=== PATIENT | female | born 1995 | race Caucasian/White ===

== ENCOUNTER 2018-08-12 02:45 | Emergency (ER) | payer SELFPAY ==
[~2018-08-12] VITALS: Ht 165.1 cm; Wt 56.9 kg
[2018-08-12 02:49] VITALS: BP 105/63
--- NOTE | 2018-08-12 02:49 | NUR ---
TO BED # 4 AMBULATORY, REPORT GIVEN TO HELENE KIM
--- NOTE | 2018-08-12 02:49 | NUR ---
Pt presents to ED with right breast pain x1 day. 6/10 pain. Pt states edema, redness, and warmth. Pt denies drainage. She is but not pumping. Pt febrile. Cooling measures implemented. Medicated per protocol. A&Ox4. Positoined in bed for comfort with HOB elevated. Family at bedside. ER MD aware. Continue to monitor.
[2018-08-12] MEDS ORDERED: ACETAMINOPHEN 325 MG TAB PO ONE (03:05)
[2018-08-12 04:02] VITALS: BP 111/65
== END 2018-08-12 04:02 | disposition home or self-care (01) ==
LOC: MED 02:45
DX: N61.0 Mastitis without abscess (principal)
CPT/HCPCS: 99283

== ENCOUNTER 2019-07-14 12:31 | Emergency (ER) | payer SELFPAY ==
[~2019-07-14] VITALS: Ht 157.5 cm; Wt 54.4 kg
[2019-07-14 12:45] VITALS: BP 109/74
--- NOTE | 2019-07-14 12:54 | NUR ---
PT BIB SELF C/O SORE THROAT X2 DAYS, AND FEVER X1 DAY. ACHY PAIN AT 4/10, INCREASES W/ SWALLOWING, TX W/ IBUPORFEN W/ RELIEF. NO SWELLING OR ERYTHEMA NOTED TO THROAT, AIRWAY PATENT VOICE CLEAR, RR EVEN, NON LABORED, AND BREATH SOUNDS CLEAR. MOIST MUCUS MEMBRANES. VSS. ER TO SEE PT. PMH:DENIES RX:IBUPROFEN.
--- NOTE | 2019-07-14 13:30 | NUR ---
DR VALERA AT BEDSIDE
[2019-07-14] MEDS ORDERED: DEXAMETHASONE 4 MG/ML VIAL PO ONE (13:35)
[2019-07-14 14:32] VITALS: BP 110/75
== END 2019-07-14 14:32 | disposition home or self-care (01) ==
LOC: MED 12:31
DX: J02.0 Streptococcal pharyngitis (principal); R51 Headache
CPT/HCPCS: 99283; J1100

== ENCOUNTER 2020-11-20 03:25 | Emergency (ER) | payer BC ==
[~2020-11-20] VITALS: Ht 165.1 cm; Wt 66.2 kg
[2020-11-20 03:33] VITALS: BP 105/61
--- NOTE | 2020-11-20 03:33 | NUR ---
TO BED AMBULATORY
--- NOTE | 2020-11-20 03:35 | NUR ---
25 Y/O FEMALE CAME TO THE ED C/O TOOTHACHE.PT IS 28 WEEKS . PT STATES 5/10 SHARP TOOTACHE PAIN. PT IS A&OX4. DENIES N/V/D; SKIN IS PINK/WARM/DRY; PT DENIES ANY FEVER, CP, SOB, OR COUGH AT THIS TIME; VSS; PATIENT POSITIONED FOR COMFORT; HOB ELEVATED; BEDRAILS UP X2; BED DOWN. ER MD MADE AWARE OF PT STATUS. NKA PMH: DENIES
[2020-11-20] MEDS ORDERED: AMOX500C25 PO (03:52)
[2020-11-20 04:00] VITALS: BP 105/61
== END 2020-11-20 04:00 | disposition home or self-care (01) ==
LOC: MED 03:25
DX: K08.89 Other specified disorders of teeth and supporting structures (principal); Z79.899 Other long term (current) drug therapy
CPT/HCPCS: 64400; 99284

== ENCOUNTER 2021-02-05 15:49 | Inpatient (IN) | payer BC, SELFPAY ==
[~2021-02-05] VITALS: Ht 162.6 cm; Wt 71.7 kg
[~2021-02-05 15:49] MED LIST: AMOX500C25 PO
[2021-02-05] MEDS ORDERED: OXYTOCIN 20 UNITS in LACTATED RINGERS 1,000 ML IV SCH (16:00)
[2021-02-05] MEDS ORDERED: LACTATED RINGERS 1,000 ML IV SCH (16:00)
[2021-02-05] MEDS ORDERED: NALBUPHINE 10 MG/ML AMP IVP PRN (16:00)
[2021-02-05] MEDS ORDERED: CARBOPROST 250 MCG/ML AMP IM PRN (16:00)
[2021-02-05] MEDS ORDERED: METHYLERGONOVINE 0.2 MG/ML AMP IM PRN ×2 (16:00→17:45)
[2021-02-05] MEDS ORDERED: LACTATED RINGERS 500 ML IV SCH (16:00)
[2021-02-05] MEDS ORDERED: PROMETHAZINE 25 MG/ML VIAL IVP PRN (16:00)
[2021-02-05 16:13] LABS: BASOPHILS % (AUTO) 0.2 % (0.0-2.0); EOSINOPHILS % (AUTO) 0.5 % (0.0-4.0); HEMATOCRIT 32.7 % (36-48); HEMOGLOBIN 10.4 g/dL (12.0-16.0); LYMPHOCYTES % (AUTO) 28.4 % (20.5-51.1); MEAN CORPUSCULAR HEMOGLOBIN 24 pg (27-31); MEAN CORPUSCULAR HGB CONC 32 g/dL (33-37); MEAN CORPUSCULAR VOLUME 76.8 fL (80-94); MONOCYTES # (AUTO) 0.5 K/uL (0.8-1.0); MONOCYTES % (AUTO) 4.5 % (1.7-9.3); NEUTROPHILS # (AUTO) 6.9 K/uL (1.8-7.7); NEUTROPHILS % (AUTO) 66.4 % (42.2-75.2); PLATELET COUNT (AUTO) 200 K/uL (140-450); RED BLOOD CELL COUNT(AUTO) 4.26 MIL/uL (4.20-5.40); WHITE BLOOD COUNT (AUTO) 10.4 K/uL (4.8-10.8)
[2021-02-05 16:36] LABS: ALBUMIN 2.7 g/dL (3.4-5.0); ANION GAP 17.1 (8-16); CARBON DIOXIDE 21.1 mmol/L (21-32); CREATININE 0.7 mg/dL (0.6-1.3); POTASSIUM 4.2 mmol/L (3.5-5.1); TOTAL BILIRUBIN 0.3 mg/dL (0.0-1.0)
[2021-02-05] MEDS ORDERED: ROPIVACAINE 0.2%/NS PREMIX 200 ML EPI ONE (17:00)
[2021-02-05] MEDS ORDERED: OXYTOCIN 20 UNITS/LR PREMIX 1,000 ML IV ONE (17:00)
[2021-02-05] MEDS ORDERED: ROPIVACAINE 0.2%/NS PREMIX 100 ML EPI SCH (17:20)
[2021-02-05 17:31] LABS: APPEARANCE,URINE CLEAR (CLEAR); BILIRUBIN,URINE NEGATIVE (NEGATIVE); BLOOD, URINE NEGATIVE (NEGATIVE); COLOR,URINE YELLOW (YELLOW); LEUKOCYTE ESTERASE ,URINE NEGATIVE (NEGATIVE); NITRITE, URINE NEGATIVE (NEGATIVE); UGLUCOSE NEGATIVE (NEGATIVE)
[2021-02-05] MEDS ORDERED: oxyCODONE/APAP 5/325 MG 1 TAB TAB PO PRN (17:45)
[2021-02-05] MEDS ORDERED: TEMAZEPAM 15 MG CAP PO PRN (17:45)
[2021-02-05] MEDS ORDERED: HYDROcodone/APAP 5/325 MG 1 TAB TAB PO PRN (17:45)
[2021-02-05] MEDS ORDERED: OXYTOCIN 10 UNITS/ML VIAL IM PRN (17:45)
[2021-02-05] MEDS ORDERED: BENZOCAINE/MENTHOL 20%-0.5% 60 GM CAN TP PRN (17:45)
[2021-02-05] MEDS ORDERED: METHYLERGONOVINE 0.2 MG TAB PO PRN (17:45)
[2021-02-05] MEDS ORDERED: IBUPROFEN 800 MG TAB PO PRN (17:45)
[2021-02-05] MEDS ORDERED: DOCUSATE SOD/SENNA 50/8.6 MG 1 TAB PO SCH (21:00)
[2021-02-06 06:07] LABS: HEPATITIS B SURFACE ANTIGEN Negative (Negative)
[2021-02-06 06:35] LABS: HEMOGLOBIN 9.4 g/dL (12.0-16.0)
--- NOTE | 2021-02-06 09:22 | NUR ---
PATIENT HAS BEEN SCREENED AND CATEGORIZED LOW NUTRITION RISK. PATIENT WILL BE SEEN WITHIN 7 DAYS OF ADMISSION. 02/12/[address]
[2021-02-06] MEDS ORDERED: IBUP-2213 PO (12:34)
[2021-02-06] MEDS ORDERED: FERR325E14 PO (12:35)
== END 2021-02-06 14:46 | disposition home or self-care (01) | DRG 807 ==
LOC: MFCC 15:49
PROVIDERS: ADMIT Obstetrics & Gynecology; ATTEND Obstetrics & Gynecology
PROC: 10E0XZZ Delivery of Products of Conception, External Approach (ICD-10-PCS; principal; 2021-02-05)
DX: O80 Encounter for full-term uncomplicated delivery (principal); Z37.0 Single live birth; Z3A.38 38 weeks gestation of pregnancy; Z20.822 Contact with and (suspected) exposure to COVID-19
CPT/HCPCS: 36415; 51702; 80053; 81003; 85018; 85025; 86592; 86762; 86886; 86900; 86901; 87340; J2300; J2550; J2590; J2795